=== PATIENT | female | born 1965 | race Caucasian/White ===

== ENCOUNTER 2021-06-29 08:11 | Outpatient (CLI) | payer OTHER, SELFPAY ==
--- NOTE | 2021-06-29 08:29 | MM_ITS ---
WS: [id number] BILATERAL DIGITAL SCREENING MAMMOGRAPHY WITH CAD CLINICAL INFORMATION: SCREENING HISTORY: Screening mammogram. No current complaints. COMPARISON: None. TECHNIQUE: Bilateral CC and MLO views. FINDINGS: The breasts are composed of heterogeneous fibroglandular density tissue, which can limit the detectio n of small underlying mass lesions. Amorphous clustered calcifications upper outer left breast wheel aligner ior depth. Recommend spot magnification views for further evaluation. Right breast is unremarkable. MM/[place] [id number] IMPRESSION: BI-RADS: 0-Incomplete: Need additional imaging evaluation FOLLOW UP: Need Additional Imaging RECOMMEND LEFT BREAST DIAGNOSTIC MAMMOGRAPHY WITH MAGNIFICATION VIEWS LEFT [facility] CALCIFICATIONSo
== END 2021-06-29 08:12 | disposition home or self-care (01) ==
PROVIDERS: PCP Family Medicine; Visit Provider Family Medicine
DX: Z12.31 Encounter for screening mammogram for malignant neoplasm of breast (principal)
CPT/HCPCS: 77067

== ENCOUNTER 2021-07-04 08:53 | Outpatient (CLI) | payer OTHER, SELFPAY ==
--- NOTE | 2021-07-04 09:00 | MM_ITS ---
WS: [id number] LEFT DIGITAL MAMMOGRAPHY WITH CAD CLINICAL INFORMATION: LT BREAST CALCIFICATIONS COMPARISON: June 29, 2021 TECHNIQUE: 4 views of the left breast were obtained. FINDINGS: Scattered fibroglandular densities of the left breast. Again seen are the amorphous cluster calcifica tions upper outer left breast posterior depth. Spot magnification views demonstrate a few punctate an d amorphous calcifications with a benign appearance. Recommend return to annual screening mammography . MM/[place] [id number] IMPRESSION: BI-RADS: 2-Benign FOLLOW UP: 1 Year Follow-up Recommend return to annual screening mammography.
== END 2021-07-04 08:54 | disposition home or self-care (01) ==
LOC: RADSHAW 08:55
PROVIDERS: PCP Family Medicine; Visit Provider Family Medicine
DX: R92.1 Mammographic calcification found on diagnostic imaging of breast (principal)
CPT/HCPCS: 77065

== ENCOUNTER 2022-03-21 16:31 | Outpatient (CLI) | payer OTHER, SELFPAY ==
--- NOTE | 2022-03-21 16:57 | XR_ITS ---
WS: [email or web address] XR thoracic spine 3V* [id number] REASON FOR EXAM: PAIN IN MID BACK FINDINGS: Mild scoliosis convex left. No significant compression deformity or other focal vertebral body lesion. Mild narrowing of the intervertebral disc spaces with small anterior osteophytes in the upper/mid tho racic spine. XR/XR thoracic spine 3V* [id number] IMPRESSION: Mild scoliosis and degenerative change as above.
== END 2022-03-21 16:32 | disposition home or self-care (01) ==
PROVIDERS: PCP Family Medicine; Visit Provider Family Medicine
DX: M54.6 Pain in thoracic spine (principal); M41.9 Scoliosis, unspecified; M48.04 Spinal stenosis, thoracic region; M25.78 Osteophyte, vertebrae
CPT/HCPCS: 72072

== ENCOUNTER → 2022-05-24 10:14 | Outpatient (BNVA) | payer OTHER, SELFPAY | PROVIDERS: PCP Family Medicine; Referring Provider Dermatology; Visit Provider Internal Medicine Rheumatology | DX: Z79.899 Other long term (current) drug therapy (principal); M19.90 Unspecified osteoarthritis, unspecified site; M47.812 Spondylosis without myelopathy or radiculopathy, cervical region; M47.814 Spondylosis without myelopathy or radiculopathy, thoracic region | CPT/HCPCS: 80076; 82306; 82565; 85025; 85651; 86038; 86140; 86200; 86431 ==

== ENCOUNTER 2022-06-06 15:07 | Outpatient (CLI) | payer OTHER, SELFPAY ==
--- NOTE | 2022-06-06 16:19 | XR_ITS ---
WS: [email or web address] Exam: XR foot LT min 3V* [id number] Date/Time of Exam: 06/06/2022 4:20 PM Reason For Exam: Z79.899 - Other long-term (current) drug therapy No fracture or dislocation. Joint structures are relatively well maintained. Mild soft tissue swellin g along the fifth MP joint. XR/XR foot LT min 3V* [id number] IMPRESSION: 1. No fracture noted. 2. Soft tissue swelling along the lateral margin of the fifth MP joint.
--- NOTE | 2022-06-06 16:19 | XR_ITS ---
WS: [email or web address] Exam: XR hand RT min 3V* [id number] Date/Time of Exam: 06/06/2022 4:20 PM Reason For Exam: Z79.899 - Other detention (current) drug therapy Findings: No fractures, soft tissue swelling, or unusual calcifications are noted. The hand shows normal bony alignment. There is no irregularity of the bony architecture. XR/XR hand RT min 3V* [id number] IMPRESSION: Normal right hand.
--- NOTE | 2022-06-06 16:19 | XR_ITS ---
WS: [email or web address] Exam: XR foot RT min 3V* [id number] Date/Time of Exam: 06/06/2022 4:20 PM Reason For Exam: Z79.899 - Other residential (current) drug therapy No fracture or dislocation noted. Soft tissue swelling along the lateral margin of the fifth MP joint . No soft tissue foreign bodies. XR/XR foot RT min 3V* [id number] IMPRESSION: 1. No fracture noted. 2. Soft tissue swelling along the fifth MP joint.
--- NOTE | 2022-06-06 16:19 | XR_ITS ---
WS: [email or web address] Exam: XR hand LT min 3V* [id number] Date/Time of Exam: 06/06/2022 4:20 PM Reason For Exam: Z79.899 - Other senior living (current) drug therapy Findings: No fractures, soft tissue swelling, or unusual calcifications are noted. The hand shows normal bony alignment. There is no irregularity of the bony architecture. XR/XR hand LT min 3V* [id number] IMPRESSION: Normal left hand.
== END 2022-06-06 15:08 | disposition home or self-care (01) ==
PROVIDERS: PCP Family Medicine; Visit Provider Internal Medicine Rheumatology
DX: Z79.899 Other long term (current) drug therapy (principal); M19.90 Unspecified osteoarthritis, unspecified site; M79.89 Other specified soft tissue disorders
CPT/HCPCS: 73130; 73630

== ENCOUNTER → 2022-11-08 09:51 | Outpatient (BNVA) | payer OTHER, SELFPAY | PROVIDERS: PCP Family Medicine; Visit Provider Family Medicine | DX: R39.9 Unspecified symptoms and signs involving the genitourinary system (principal); N76.0 Acute vaginitis; B96.89 Other specified bacterial agents as the cause of diseases classified elsewhere | CPT/HCPCS: 81000 ==

== ENCOUNTER 2022-12-19 14:07 | Outpatient (CLI) | payer OTHER, SELFPAY ==
[2022-12-19 14:58] LABS: Basophils # 0.1 10^3/uL (0.0-0.1); Basophils % 0.9 %; Eosinophils # 0.2 10^3/uL (0.0-0.8); Eosinophils % 2.8 %; Hematocrit 39.7 % (37.0-47.0); Hemoglobin 12.7 g/dL (11.5-15.3); Lymphocytes # 2.1 10^3/uL (0.8-4.8); Mean Corpuscular Hemoglobin 30.2 pg (28.0-34.0); Mean Corpuscular Volume 94.3 fl (81-99); Mean Platelet Volume 9.1 fL (7.4-10.4); Monocytes # 0.4 10^3/uL (0.2-0.9); Neutrophils # 3.88 10^3/uL (1.8-7.7); Nucleated Red Blood Cells % 0 %; Platelet Count 422 10^3/cmm (130-400); Red Blood Count 4.21 10^6/uL (4.1-5.3); Red Cell Distribution Width 12.6 % (12.1-15.1); White Blood Count 6.7 10^3/uL (4.0-10.0)
[2022-12-19 15:27] LABS: Alanine Aminotransferase 28 U/L (0-33); Albumin Level 4.5 g/dL (3.5-5.2); Alkaline Phosphatase 74 U/L (35-105); Aspartate Amino Transferase 24 U/L (0-32); Globulin 2.7 g/dL (1.3-4.6); Glomerular Filtration Rate 57.6 mL/min (90-130); Total Bilirubin 0.3 mg/dL (0.15-1.2); Total Protein 7.2 g/dL (6.6-8.7)
== END 2022-12-19 14:08 | disposition home or self-care (01) ==
LOC: LAB 14:11
PROVIDERS: PCP Family Medicine; Visit Provider Internal Medicine Rheumatology
DX: Z79.899 Other long term (current) drug therapy (principal); M19.90 Unspecified osteoarthritis, unspecified site
CPT/HCPCS: 36415; 80076; 82565; 85025; 86140

== ENCOUNTER 2023-01-16 11:41 | Outpatient (CLI) | payer OTHER, SELFPAY ==
--- NOTE | 2023-01-16 12:00 | XRR_ITS ---
PROCEDURE INFORMATION: Exam: XR Cervical Spine Exam date and time: 01/16/2023 12:04 PM Age: 57 years old Clinical indication: Neck pain; Patient HX: Chronic pain, did physical therapy and the pain has not subsided. X 2 years posterior pain; Additional info: Neck, shoulder pain TECHNIQUE: Imaging protocol: Radiologic exam of the cervical spine. Views: 2 or 3 views. COMPARISON: CR XR thoracic spine 3V* [id number] 03/21/2022 4:57 PM FINDINGS: Bones/joints: Trace levocurvature of the cervical spine is present. There is straightening of the normal cervical lordosis, with trace retrolisthesis of C5. No fracture identified. Vertebral body heights are well preserved. There is multilevel degenerative changes, manifested by intervertebral disc space narrowing, endplate osteophytes and facet joint arthrosis. Soft tissues: Unremarkable. XR/XR cervical spine 3V* [id number] IMPRESSION: 1. No acute injury identified. 2. Degenerative changes of the cervical spine.
== END 2023-01-16 11:42 | disposition home or self-care (01) ==
PROVIDERS: PCP Family Medicine; Visit Provider Family Medicine
DX: M05.79 Rheumatoid arthritis with rheumatoid factor of multiple sites without organ or systems involvement (principal); M47.812 Spondylosis without myelopathy or radiculopathy, cervical region; M47.892 Other spondylosis, cervical region
CPT/HCPCS: 72040

== ENCOUNTER 2023-03-14 11:07 | Outpatient (CLI) | payer OTHER, SELFPAY ==
--- NOTE | 2023-03-14 11:17 | XR_ITS ---
WS: [email or web address] Lateral views of cervical spine in the flexion, extension and neutral positions. 03/14/2023 Clinical Data: M54.12 - Radiculopathy, cervical region Comparison: Cervical spine, 01/16/2023 Findings: There are no compression fractures or dislocations. There is degenerative disc narrowing at C4-C5, C5 -C6 and C6-C7. There are posterior and anterior osteophytes at these levels. There is no prevertebral soft tissue swelling. On flexion and extension there is no subluxation or limitation of motion. XR/XR cervical spine fl/ex [id number] Impression: 1. Degenerative disc narrowing at multiple levels with accompanying osteoarthri tis. 2. Negative for limitation of motion or subluxation on flexion or extension.
== END 2023-03-14 11:08 | disposition home or self-care (01) ==
PROVIDERS: PCP Family Medicine; Visit Provider Family Medicine
DX: M54.12 Radiculopathy, cervical region (principal); M47.892 Other spondylosis, cervical region
CPT/HCPCS: 72040

== ENCOUNTER → 2023-08-06 12:59 | Outpatient (BNVA) | payer OTHER, SELFPAY | PROVIDERS: PCP Family Medicine; Visit Provider Family Medicine | DX: F41.9 Anxiety disorder, unspecified (principal); M05.79 Rheumatoid arthritis with rheumatoid factor of multiple sites without organ or systems involvement; E55.9 Vitamin D deficiency, unspecified; M19.90 Unspecified osteoarthritis, unspecified site; M47.12 Other spondylosis with myelopathy, cervical region; R53.83 Other fatigue; E03.9 Hypothyroidism, unspecified; J32.9 Chronic sinusitis, unspecified | CPT/HCPCS: 80053; 82607; 82652; 84436; 84443; 84481; 84482; 85025; 86376 ==

== ENCOUNTER 2023-09-10 10:01 | Outpatient (CLI) | payer OTHER, SELFPAY ==
--- NOTE | 2023-09-10 10:03 | MM_ITS ---
WS: [email or web address] BILATERAL SCREENING DIGITAL TOMOSYNTHESIS MAMMOGRAM WITH CAD HISTORY: Z00.00 - Encounter for general adult medical examination ... COMPARISON: 07/04/2021 and 06/29/2021 Bilateral CC and MLO views with tomosynthesis and synthetic mammography submitted. Computer aided det ection analyzed. Breast composition: There are scattered areas of fibroglandular density. No suspicious masses, microc alcifications or architectural distortion. Faintly visualized calcifications in the posterior LEFT br east were previously described. No increase in the number. IMPRESSION: MM/[place] [id number] BI-RADS: 2-Benign FOLLOW UP: 1 Year Follow-up
== END 2023-09-10 10:02 | disposition home or self-care (01) ==
LOC: RAD 10:01
PROVIDERS: PCP Family Medicine; Visit Provider Family Medicine
DX: Z12.31 Encounter for screening mammogram for malignant neoplasm of breast (principal)
CPT/HCPCS: 77063; 77067

== ENCOUNTER 2023-09-27 11:37 | Outpatient (CLI) | payer OTHER, SELFPAY ==
--- NOTE | 2023-09-27 11:41 | XR_ITS ---
WS: [email or web address] Exam: XR lumbar spine min 4V [id number] Date/Time of Exam: 09/27/2023 12:04 PM Reason For Exam: M54.50 - Low back pain, unspecified No fracture or dislocation. Advanced degenerative disc change at L5-S1 with spondylosis. Moderate deg enerative narrowing of the L to 3 disc. Posterior elements are intact. Facet DJD at L4-5 and L5-S1. N o significant scoliosis. IMPRESSION: 1. No fracture or malalignment. 2. Degenerative changes as detailed above.
== END 2023-09-27 11:38 | disposition home or self-care (01) ==
LOC: RAD 11:38
PROVIDERS: PCP Family Medicine; Visit Provider Anesthesiology Pain Medicine
DX: M47.816 Spondylosis without myelopathy or radiculopathy, lumbar region (principal)
CPT/HCPCS: 72110

== ENCOUNTER → 2023-10-26 09:04 | Outpatient (BNVA) | payer OTHER, SELFPAY | PROVIDERS: PCP Family Medicine; Visit Provider Clinical Nurse Specialist Adult Health | DX: N39.0 Urinary tract infection, site not specified (principal) | CPT/HCPCS: 81000; 87086 ==

== ENCOUNTER 2023-12-24 10:51 | Outpatient (RCR) | payer OTHER, SELFPAY | END 2024-01-10 23:59 | disposition home or self-care (01) | LOC: SPT 10:51 | PROVIDERS: PCP Anesthesiology Pain Medicine; Visit Provider Family Medicine | DX: M47.816 Spondylosis without myelopathy or radiculopathy, lumbar region (principal) | CPT/HCPCS: 97110; 97161 ==

== ENCOUNTER 2024-01-11 06:00 | Outpatient (RCR) | payer OTHER, SELFPAY | END 2024-02-10 23:59 | disposition home or self-care (01) | LOC: SPT 06:00 | PROVIDERS: PCP Anesthesiology Pain Medicine; Visit Provider Family Medicine | DX: M47.816 Spondylosis without myelopathy or radiculopathy, lumbar region (principal) | CPT/HCPCS: 97110 ==

== ENCOUNTER 2024-02-11 06:00 | Outpatient (RCR) | payer OTHER, SELFPAY | END 2024-03-11 23:59 | disposition home or self-care (01) | LOC: SPT 06:00 | PROVIDERS: PCP Anesthesiology Pain Medicine; Visit Provider Family Medicine | DX: M47.816 Spondylosis without myelopathy or radiculopathy, lumbar region (principal) | CPT/HCPCS: 97110 ==

== ENCOUNTER → 2024-02-28 14:58 | Outpatient (BNVA) | payer OTHER, SELFPAY | PROVIDERS: PCP Anesthesiology Pain Medicine; Visit Provider Family Medicine | DX: E03.9 Hypothyroidism, unspecified (principal); F41.9 Anxiety disorder, unspecified; R27.9 Unspecified lack of coordination; M47.812 Spondylosis without myelopathy or radiculopathy, cervical region; E55.9 Vitamin D deficiency, unspecified; Z79.899 Other long term (current) drug therapy | CPT/HCPCS: 80053; 82607; 82652; 83090; 84439; 84443; 84480; 85025 ==

== ENCOUNTER 2024-03-12 06:00 | Outpatient (RCR) | payer OTHER, SELFPAY | END 2024-04-11 23:59 | disposition home or self-care (01) | LOC: SPT 06:00 | PROVIDERS: PCP Anesthesiology Pain Medicine; Visit Provider Family Medicine | DX: M47.816 Spondylosis without myelopathy or radiculopathy, lumbar region (principal) | CPT/HCPCS: 97110 ==

== ENCOUNTER 2024-04-12 06:00 | Outpatient (RCR) | payer OTHER, SELFPAY | END 2024-05-11 23:59 | disposition home or self-care (01) | LOC: SPT 06:00 | PROVIDERS: PCP Family Medicine; Visit Provider Family Medicine | DX: M47.816 Spondylosis without myelopathy or radiculopathy, lumbar region (principal) | CPT/HCPCS: 97110 ==

== ENCOUNTER → 2024-04-25 11:06 | Outpatient (BNVA) | payer OTHER, SELFPAY | PROVIDERS: PCP Family Medicine; Visit Provider Family Medicine | DX: E53.8 Deficiency of other specified B group vitamins (principal) | CPT/HCPCS: 82607 ==

== ENCOUNTER 2024-05-12 06:00 | Outpatient (RCR) | payer OTHER, SELFPAY | END 2024-05-28 23:59 | disposition home or self-care (01) | LOC: SPT 06:00 | PROVIDERS: PCP Family Medicine; Visit Provider Family Medicine | DX: M47.816 Spondylosis without myelopathy or radiculopathy, lumbar region (principal) | CPT/HCPCS: 97110 ==

== ENCOUNTER → 2024-05-22 10:37 | Outpatient (BNVA) | payer OTHER, SELFPAY | PROVIDERS: PCP Family Medicine; Visit Provider Orthopaedic Surgery | DX: M47.12 Other spondylosis with myelopathy, cervical region (principal) | CPT/HCPCS: 72050 ==

== ENCOUNTER 2024-07-08 13:59 | Outpatient (CLI) | payer OTHER, SELFPAY ==
--- NOTE | 2024-07-08 14:04 | XR_ITS ---
WS: [email or web address] SCREENING DEXA SCAN [employer] CLINICAL INFORMATION: POSTMENOPAUSAL BONE LOSS COMPARISON: None. FINDINGS: The L1-L4 bone mineral density measures 1.290 g/cm2. This corresponds to a T score score of 0.9 and Z score of 1.8. Left femoral neck bone mineral density measures 1.020 g/cm2. This corresponds to a T score of 0.1 and Z score of 0.8. Right femoral neck bone mineral density measures 1.018 g/cm2. This corresponds to a T score 0.1of and Z score of 0.8. Mean femoral neck bone mineral density measures 1.019 g/cm2. This corresponds to a T score of 0.1 and Z score of 0.8. XR/XR DEXA axial skeleton* [id number] IMPRESSION: Normal bone mineralization. Patient's FRAX calculated 10 year probability for major osteoporotic fracture i s 5.7% and osteoporotic hip fracture is 0.2%.
== END 2024-07-08 14:00 | disposition home or self-care (01) ==
LOC: RAD 14:00
PROVIDERS: PCP Family Medicine; Visit Provider General Practice
DX: M81.0 Age-related osteoporosis without current pathological fracture (principal)
CPT/HCPCS: 77080

== ENCOUNTER 2024-07-09 14:14 | Outpatient (CLI) | payer OTHER, SELFPAY | END 2024-07-09 14:15 | disposition home or self-care (01) | LOC: RAD 07-16 15:30 | PROVIDERS: PCP Family Medicine; Visit Provider Psychiatry & Neurology Neurology | DX: E53.8 Deficiency of other specified B group vitamins (principal); R27.9 Unspecified lack of coordination; R53.83 Other fatigue; F41.9 Anxiety disorder, unspecified; R20.2 Paresthesia of skin; Z79.899 Other long term (current) drug therapy; M05.79 Rheumatoid arthritis with rheumatoid factor of multiple sites without organ or systems involvement | CPT/HCPCS: 82085; 82306; 82525; 82550; 83735; 84207 ==

== ENCOUNTER 2024-07-30 13:02 | Outpatient (CLI) | payer OTHER, SELFPAY ==
--- NOTE | 2024-07-30 13:00 | MR_ITS ---
WS: [email or web address] MRI CERVICAL SPINE NONCONTRAST TECHNIQUE: Sagittal T1, T2 and STIR imaging. Axial T2, gradient, and fiesta imaging. CLINICAL INFORMATION: neck pain COMPARISON: Outside MRI 2022 FINDINGS: Straightening of the normal cervical lordosis. Mild spondylitic changes. Cord signal is normal. Disc osteophyte protrusions at C4-C5 C5-C6 and C6-C7. C2-C3: Normal. C3-C4: Mild disc osteophyte ridging. Mild facet arthropathy. Spinal canal and foramen are patent. C4-C5: Mild disc osteophyte ridging. Moderate facet arthropathy. Mild bilateral bony foraminal narrow ing. C5-C6: RIGHT paracentral disc osteophyte protrusion with indentation of the RIGHT ventral cervical co rd. Severe RIGHT and moderate LEFT bony foraminal narrowing similar to previous. C6-C7: Disc osteophyte complex eccentric to the LEFT. Moderate LEFT greater than RIGHT bony foraminal narrowing. Spinal canal is patent. C7-T1: Normal. Visualized brain stem structures: Normal. Prevertebral soft tissues: Normal. MR/MR cervical spin wo con* [id number] IMPRESSION: Overall no significant changes since the outside MRI 2022 1. Straightening of the normal cervical lordosis. Mild spondylitic changes. 2. RIGHT paracentral disc osteophyte protrusion C5-C6 with slight indentation on the cervical cord. Mild central canal stenosis. 3. Moderate to severe RIGHT C5-C6 and moderate LEFT C6-C7 bony foraminal narro wing.
== END 2024-07-30 13:03 | disposition home or self-care (01) ==
LOC: RAD 13:02
PROVIDERS: PCP Family Medicine; Visit Provider Orthopaedic Surgery
DX: M47.12 Other spondylosis with myelopathy, cervical region (principal); M50.20 Other cervical disc displacement, unspecified cervical region; M25.78 Osteophyte, vertebrae; M99.61 Osseous and subluxation stenosis of intervertebral foramina of cervical region
CPT/HCPCS: 72141

== ENCOUNTER 2024-08-20 13:28 | Outpatient (CLI) | payer OTHER, SELFPAY ==
--- NOTE | 2024-08-20 13:45 | MR_ITS ---
WS: [email or web address] MRI BRAIN WITH AND WITHOUT CONTRAST HISTORY: R20.2 - Paresthesia of skin COMPARISON: None available. TECHNIQUE: Multiplanar imaging performed through the brain with MultiHance 20 ml's IV. No acute infarcts are seen. Hernandez-white matter differentiation is well preserved. No pericallosal whit e matter lesions. No susceptibility artifacts or prior lacunar infarcts. Ventricles and extra-axial spaces are normal. Clivus and pituitary gland are normal. Visualized posterior fossa and brainstem are also normal. Postcontrast images are negative for masses or vascular malformations. Dural venous sinuses are normal. Paranasal sinuses: Well aerated with no significant disease. Mastoid air cells: Normal. Calvarium and scalp: Normal. MR/MR head wo/w con [id number] IMPRESSION: 1. Normal MRI brain with contrast. 2. No demyelinating lesions or signal abnormality.
[2024-08-20] MEDS: gadobenate dimeglumine 20 mL vial 15 ML IV (14:45)
== END 2024-08-20 13:29 | disposition home or self-care (01) ==
LOC: RAD 13:28
PROVIDERS: PCP Family Medicine; Visit Provider Psychiatry & Neurology Neurology
DX: R20.2 Paresthesia of skin (principal); R27.9 Unspecified lack of coordination; E53.8 Deficiency of other specified B group vitamins; R53.83 Other fatigue; Z79.899 Other long term (current) drug therapy; M05.79 Rheumatoid arthritis with rheumatoid factor of multiple sites without organ or systems involvement
CPT/HCPCS: 70553

== ENCOUNTER 2024-10-21 12:30 | Outpatient (CLI) | payer OTHER, SELFPAY ==
--- NOTE | 2024-10-21 12:32 | MM_ITS ---
WS: [email or web address] BILATERAL 3D TOMOSYNTHESIS DIGITAL SCREENING MAMMOGRAPHY WITH CAD CLINICAL INFORMATION: SCREENING HISTORY: Screening mammogram. No current complaints. COMPARISON: 2022 TECHNIQUE: Bilateral CC and MLO views. FINDINGS: The breasts are composed of heterogeneous fibroglandular density tissue, which can limit the detectio n of small underlying mass lesions. No suspicious mass, asymmetry, calcifications, or architectural d istortion. No evidence of malignancy. A few incidental punctate calcifications. MM/MM [facility] tomosynthesis [id number] IMPRESSION: DENSITY: The breasts are heterogeneously dense, which may obscure small masses. BI-RADS: 2 - Benign FOLLOW UP: 1 Year Follow-up Recommend return to annual screening mammography.
== END 2024-10-21 12:31 | disposition home or self-care (01) ==
PROVIDERS: PCP Family Medicine; Visit Provider Family Medicine
DX: Z12.31 Encounter for screening mammogram for malignant neoplasm of breast (principal); R92.333 Mammographic heterogeneous density, bilateral breasts; R92.1 Mammographic calcification found on diagnostic imaging of breast
CPT/HCPCS: 77063; 77067

== ENCOUNTER 2024-10-22 13:33 | Outpatient (CLI) | payer OTHER, SELFPAY ==
--- NOTE | 2024-10-22 13:45 | MRR_ITS ---
PROCEDURE INFORMATION: Exam: MR Lumbar Spine Without and With Contrast Exam date and time: 10/22/2024 1:45 PM Age: 59 years old Clinical indication: Patient HX: Chronic low back pain, bilateral lower extremity weakness left greater than right. ; Additional info: M51.16 - intervertebral disc disorders with radiculopathy. . . TECHNIQUE: Imaging protocol: Magnetic resonance imaging of the lumbar spine without and with contrast. Contrast material: MULTIHANCE; Contrast volume: 13 ml; Contrast route: INTRAVENOUS (IV); COMPARISON: CR XR lumbar spine min 4V [id number] 09/27/2023 12:00 PM FINDINGS: Bones/joints: The lumbar vertebral bodies are normally aligned. The vertebral body heights are maintained. Moderate to severe disc space narrowing at L5-S1. Moderate disc space narrowing at L2-L3. Spinal cord: The conus terminates normally at the L1 level. The roots of the cauda equina are not clumped or thickened. No abnormal intrathecal enhancement. L1-L2: Broad concentric disc bulge and bilateral facet arthropathy contributing to mild central canal stenosis. Bilateral neuroforamina are patent. L2-L3: Broad concentric disc bulge and bilateral facet arthropathy contributing to mild central canal stenosis. Moderate right and mild left neuroforaminal narrowing. L3-L4: Broad concentric disc bulge and bilateral facet arthropathy contributing to mild central canal stenosis. Mild bilateral neuroforaminal narrowing. L4-L5: Broad concentric disc bulge and bilateral facet arthropathy contributing to mild central canal stenosis. Mild bilateral neuroforaminal narrowing. L5-S1: Broad concentric disc bulge and bilateral facet arthropathy without any significant central canal stenosis. Mild bilateral neuroforaminal narrowing. Soft tissues: Unremarkable. MR/MR lumbar spine wo/w con [id number] IMPRESSION: Multilevel degenerative changes of the lumbar spine as outlined above.
[2024-10-22] MEDS: gadobenate dimeglumine 20 mL vial 13 ML IV (14:16)
== END 2024-10-22 13:34 | disposition home or self-care (01) ==
PROVIDERS: PCP Family Medicine; Visit Provider Psychiatry & Neurology Neurology
DX: M51.16 Intervertebral disc disorders with radiculopathy, lumbar region (principal); M99.63 Osseous and subluxation stenosis of intervertebral foramina of lumbar region; M51.360 Other intervertebral disc degeneration, lumbar region with discogenic back pain only
CPT/HCPCS: 72158; A9577

== ENCOUNTER → 2024-11-07 10:14 | Outpatient (BNVA) | payer OTHER, SELFPAY | PROVIDERS: PCP Family Medicine; Visit Provider Physician Assistant | DX: G56.01 Carpal tunnel syndrome, right upper limb; G56.21 Lesion of ulnar nerve, right upper limb | CPT/HCPCS: 73130 ==

== ENCOUNTER → 2024-12-08 14:59 | Outpatient (BNVA) | payer OTHER, SELFPAY | PROVIDERS: PCP Family Medicine; Visit Provider Psychiatry & Neurology Neurology | DX: R27.8 Other lack of coordination (principal) | CPT/HCPCS: 36415; 82306; 84207 ==

== ENCOUNTER → 2025-01-13 10:49 | Outpatient (BNVA) | payer OTHER, SELFPAY | PROVIDERS: PCP Family Medicine; Visit Provider Orthopaedic Surgery | DX: M54.12 Radiculopathy, cervical region (principal) | CPT/HCPCS: 72050 ==